=== PATIENT | female | born 1980 | race Caucasian/White ===

== ENCOUNTER 2018-07-26 07:45 | Day surgery (SDC) | payer OTHER, SELFPAY ==
[2018-07-12 13:37] VITALS: BMI 28.7
--- NOTE | 2018-07-26 | PATH_ITS ---
[facility] Accession Number: [id number] . 01 Material submitted: . CERVIX . 01 Clinical history: . LEEP CONE . 02 Diagnosis: Cervix, LEEP Cone: High-grade squamous intraepithelial lesion (HSIL/moderate-severe dysplasia/STACEY 2-3) involves the 12-3 o'clock, 3-6 o'clock, and 6-9 o'clock quadrants with focal gland neck involvement. In the 12-3 o'clock quadrant, high-grade squamous intraepithelial lesion (HSIL/moderate to severe dysplasia/STACEY 2-3) focally approaches a disrupted, inked endocervical margin. In the 3-6 o'clock quadrant, high grade squamous intraepithelial lesion is very close to the deep margin in a region of gland neck involvement. Patchy, adjacent regions of low grade squamous intraepithelial lesion (LSIL / mild dysplasia / STACEY I) are present. In the 6-9 o'clock quadrant, HSIL focally involves one disrupted indeterminate margin, favor ectocervical. No invasive tumor identified. Changes suggestive of previous instrumentation are present in the 9-12 o'clock quadrant. MRV/07/29/2018 . 02 Electronically signed: . Paola Porras MD, Pathologist NPI- [id number] . 01 Gross description: . Received in formalin, labeled LEEP cone BX of the cervix, suture at 6 o'clock, is a cervical LEEP biopsy (1.5 cm 12-6 o'clock, 1.7 cm 3-9 o'clock, 0.5 cm superficial to deep) oriented with a black suture indicating 6 o'clock. The mucosa is juárez-armando, smooth, shiny, and flat. The resection margin is armando-pink with a finely granular resection margin. No nodules, masses, or lesions are identified. Ink code: Black - deep; blue - radial; orange - os/endocervical canal. Section code: Radially sectioned and entirely submitted clockwise from 12 o'clock - (A1) 12-3 o'clock; (A2) 3-6 o'clock; (A3) 6-9 o'clock; (A4) 9-12 o'clock. ([id number]) /FRR . 02 Pathologist provided ICD-10: N87.1 . 02 CPT . 140067 Performed at: 01 [facility] [address] [id number] MD Izaiah Ledezma MD Phone: [phone] Performed at: 02 [facility] [address] [address] [place] [id number] MD Nura Linares MD Phone: [phone]
[2018-07-26 08:05] VITALS: BMI 28.9
[2018-07-26 08:13] VITALS: BP 100/70; PULSE 58; RESP 16; TEMP 36.5; O2SAT 100
[2018-07-26] MEDS: LACTATED RINGERS 1,000 ML 21 ML IV (08:22)
--- NOTE | 2018-07-26 08:45 | SUR.OPER ---
Lithotomy on padded OR bed, head on pillow, arms secured on padded arm boards at <90 degrees abduction. Legs secured in padded yellow fins stirrups.
[2018-07-26 09:31] VITALS: BP 120/78; PULSE 80; RESP 14; TEMP 36; O2SAT 100
[2018-07-26 09:35] VITALS: BP 119/79; PULSE 67; RESP 12; O2SAT 100
[2018-07-26] MEDS: KETOROLAC 30 MG/ML VIAL IV (09:35)
[2018-07-26 09:40] VITALS: BP 119/84; PULSE 73; RESP 12; O2SAT 100
[2018-07-26 09:45] VITALS: BP 104/73; PULSE 81; RESP 16; TEMP 36.2; O2SAT 100
--- NOTE | 2018-07-26 10:00 | SUR.PHASEII ---
PT ARRIVED TO PHASE II VIA STRETCHER. PT SITTING UP AND EATING NEVAEH CRACKERS. PT ALERT AND TALKING TO RN. THUY-OBSERVED TO HAVE MINIMUAL BLOOD ON PAD. PT DENIES ANY PAIN/DISCOMFORT OR NAUSEA. BED IN LOWEST POSITION AND CALL LIGHT GIVEN TO PT. PT AWAITING RETURN OF PT MOM FROM GETTING RX FILLED. PT APPEARS COMFORTABLE AT THIS TIME.
[2018-07-26 10:19] VITALS: BP 98/66; PULSE 68; RESP 16; TEMP 36.4; O2SAT 97
--- NOTE | 2018-07-26 10:34 | SUR.PHASEII ---
assumed care to d/c pt and send her home. Last set of vital signs obtained by RN and then pt given d/c instructions. No complaints voiced at present time. pt d/dunia with her mother and in wheel chair.
--- NOTE | 2018-09-06 12:53 | PM.GYNOP.1 ---
Operative Date/Time/Diagnoses Date of procedure: 07/26/18 Time of procedure: 10:30 Pre-op diagnosis: STACEY 3 Post-op diagnosis: same Procedure: Procedures Operation Date: 07/26/18 08:45 Actual Procedures Side Surgeon p LEEP Procedure Linda Barrera MD Indications: STACEY 3 by colposcopic biopsy Surgeon: Linda Barrera Anesthesia Type: General (LMA) Operative Notes Closure Type: not applicable Specimen(s): other (LEEP cone biopsy of the cervix) Applied: catheter (In and out) Estimated blood loss (mL): 15 Blood products transfused: none Procedure in detail: After informed consent was obtained, the patient was taken to the operating room where she was placed in the dorsal supine position. After adequate LMA general anesthesia was achieved, she was placed in the dorsal lithotomy position, and prepped and draped in the usual sterile fashion. A time-out was performed. A plastic coated bivalve speculum was placed into the vagina and a plastic coated single-tooth tenaculum was placed on the anterior lip of the cervix. Lugol's was applied to the cervix. There were Lugol's light areas circumferentially around the transformation zone. Using a large loop, the anterior lip of the cervix was excised including the Lugol's light areas with settings at 60 cut and 40 cautery. This was repeated on the posterior lip of the cervix. The ball cautery was used for hemostasis at the base of the cone. The plastic coated single-tooth tenaculum was removed from the anterior lip of the cervix. The plastic coated bivalve speculum was removed from the vagina. Sponge, lap, and instrument counts were correct x2. The patient tolerated the procedure well, and was taken to PACU in stable condition. The specimens were labeled with a short suture at 6:00 a.m. and a long suture at 12:00 p.m.. Complications: none Post-operative Condition: stable Disposition: PACU Plan for aftercare: Home after recovery
--- NOTE | 2018-10-18 09:58 | PM.HP.1 ---
History of Present Illness Date Patient Seen: 07/26/18 Time Patient Seen: 09:30 Chief complaint: leep [id number] Narrative: Patient is a 38-year-old with STACEY 3 here for LEEP cone biopsy of the cervix Patient History Medical History HPV in female (Acute) Family & Social History Tobacco & Substance use: Smoking Status Former smoker Meds Home Medications Medication Instructions Recorded Confirmed Type cholecalciferol (vitamin D3) 2,000 2,000 unit PO DAILY 07/03/18 07/26/18 History unit capsule escitalopram 20 mg tablet 20 mg PO DAILY 07/03/18 07/26/18 History Ortho Tri-Cyclen LO (28) 1 tab PO DAILY 07/26/18 07/26/18 History Allergies Allergy/AdvReac Type Severity Reaction Status Date / Time No Known Drug Allergies Allergy Verified 09/11/18 11:01 Exam Vital Signs (past 8 hours): Oxygen Delivery Method Room Air Narrative Exam Narrative: HEENT: No thyromegaly, no anterior cervical or supraclavicular lymphadenopathy. Lungs:Clear to auscultation bilaterally, no wheezes. Cardiovascular: Regular rate and rhythm, no murmurs, rubs, or gallops. Abdomen: No scars. No hepatosplenomegaly. No masses palpable. External genitalia: Normal Vagina: Normal Cervix: Normal Bimanual exam: 6 Week size uterus. Mobile. Rectal: No masses. 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 The risks including bleeding and infection. She understands these risks and agrees to proceed. A full PAR-Q was held and consent form was signed.
--- NOTE | 2018-10-18 10:01 | P.HP_ITS ---
History of Present Illness Date Patient Seen: 07/26/18 Time Patient Seen: 09:30 Chief complaint: leep [id number] Narrative: Patient is a 38-year-old with STACEY 3 here for LEEP cone biopsy of the cervix Patient History Medical History HPV in female (Acute) Family & Social History Tobacco & Substance use: Smoking Status Former smoker Meds Home Medications Medication Instructions Recorded Confirmed Type cholecalciferol (vitamin D3) 2,000 2,000 unit PO DAILY 07/03/18 07/26/18 History unit capsule escitalopram 20 mg tablet 20 mg PO DAILY 07/03/18 07/26/18 History Ortho Tri-Cyclen LO (28) 1 tab PO DAILY 07/26/18 07/26/18 History Allergies Allergy/AdvReac Type Severity Reaction Status Date / Time No Known Drug Allergies Allergy Verified 09/11/18 11:01 Exam Vital Signs (past 8 hours): Oxygen Delivery Method Room Air Narrative Exam Narrative: HEENT: No thyromegaly, no anterior cervical or supraclavicular lymphadenopathy. Lungs:Clear to auscultation bilaterally, no wheezes. Cardiovascular: Regular rate and rhythm, no murmurs, rubs, or gallops. Abdomen: No scars. No hepatosplenomegaly. No masses palpable. External genitalia: Normal Vagina: Normal Cervix: Normal Bimanual exam: 6 Week size uterus. Mobile. Rectal: No masses. 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 The risks including bleeding and infection. She understands these risks and agrees to proceed. A full PAR-Q was held and consent form was signed.
== END 2018-07-26 10:32 | disposition home or self-care (01) ==
PROVIDERS: Visit Provider Obstetrics & Gynecology
PROC: 0UBC7ZZ Excision of Cervix, Via Natural or Artificial Opening (ICD-10-PCS; CPT 57522; principal; 2018-07-26 08:45)
DX: N87.1 Moderate cervical dysplasia (principal); F17.210 Nicotine dependence, cigarettes, uncomplicated
CPT/HCPCS: 57522; J1100; J1885; J2405; J2704; J3010